=== PATIENT | female | born 1940 | race Hispanic/Latino ===

== ENCOUNTER 2017-12-31 22:23 | Inpatient (IN) | payer MEDICARE ==
[2017-12-31 23:03] LABS: #Lymphocytes 1.9 thou/uL (1.20-3.40); #Monocytes 0.5 thou/uL (0.11-0.59); #Neutrophils 4.7 thou/uL (1.40-6.50); %Basophils 0.6 % (0.0-1.0); %Eosinophils 0.5 % (0.0-10.0); %Lymphocytes 26.3 % (21.0-51.0); %Monocytes 7.2 % (0.0-10.0); %Neutrophils 65.4 % (42.0-75.0); Hemoglobin 13.4 g/dL (12.0-16.0); Mean Corpuscular HGB CONC 35.1 g/dL (32.0-36.0); Mean Corpuscular Hemoglobin 32.7 pg (27.0-31.0); Mean Corpuscular Volume 93.3 fl (81.0-99.0); Mean Platelet Volume 6.7 fL (7.4-10.4); Platelet Count 211 thou/uL (130-400); RBC Distribution Width 11.4 % (11.5-14.5); Red Blood Cell (RBC) Count 4.08 mill/uL (4.20-5.40); White Blood Cell (WBC) Count 7.1 thou/uL (4.8-10.8)
[2017-12-31 23:25] LABS: ALT (SGPT) 13 U/L (8-55); AST (SGOT) 21 U/L (5-34); Albumin 3.9 g/dL (3.4-4.8); Alkaline Phosphatase 56 U/L (40-150); Anion Gap 9 mmol/L (10-20); BUN (Urea Nitrogen) 9 mg/dL (9.8-20.1); Bilirubin, Total 0.7 mg/dL (0.2-1.2); Calc. Creatinine Clearance 0 mL/min (70-130); Carbon Dioxide 28 mmol/L (23-31); Chloride 104 mmol/L (98-107); Estimated GFR-MDRD 67; Globulin 2.8 g/dL (2.4-3.5); Glucose 100 mg/dL (83-110); Potassium 3.2 mmol/L (3.5-5.1); Protein, Total 6.7 g/dL (6.0-8.3); Sodium 138 mmol/L (136-145)
--- NOTE | 2017-12-31 23:25 | RAD ---
PORTABLE CHEST: HISTORY: Weakness. Feels dehydrated. FINDINGS: Heart size appears slightly enlarged. There are atherosclerotic changes of the aorta. The lungs are clear of infiltrates. No signs of failure. The bones appear demineralized. IMPRESSION: Borderline to minimal cardiomegaly. POS: [facility]
[2017-12-31 23:35] LABS: CKMB 1.6 ng/mL (0-6.6); Troponin I 0.022 ng/mL (< 0.028)
--- NOTE | 2017-12-31 23:58 | CT ---
CT BRAIN PERFORMED WITHOUT CONTRAST ENHANCEMENT: HISTORY: Altered mental status. FINDINGS: The ventricular and cisternal system show fairly age appropriate change. There are no signs of intra cerebral hemorrhage or extraaxial fluid collections. The mastoid air cells are clear. There is ethm oid air cell mucosal change. IMPRESSION: No acute intracranial abnormalities. POS: [facility]
[2018-01-01 00:54] LABS: Bilirubin Negative (Negative); Blood, Urine Negative (Negative); Clarity CLEAR (Clear); Glucose, Urine (Dipstick) Negative (Negative); Leukocyte Negative (Negative); Nitrite Negative (Negative); Protein, Urine (Dipstick) Negative (Neg-Trace); Specific Gravity, Urine 1.004 (1.002-1.036); Urobilinogen 0.2 mg/dL (0.2-1.0); pH, Urine 7.5 (5.0-9.0)
[2018-01-01] MEDS ORDERED: Metoprolol Tartrate 25 MG TAB ONE (01:32)
[2018-01-01 04:24] VITALS: BMI 25.8
[2018-01-01] MEDS ORDERED: Ondansetron HCl/PF 4 MG/2 ML Vial IVP PRN (05:15)
[2018-01-01] MEDS ORDERED: Acetaminophen 325 MG TAB PO PRN (05:15)
[2018-01-01] MEDS ORDERED: Ondansetron ODT 4 MG TAB PO PRN (05:15)
[2018-01-01] MEDS ORDERED: Senokot 8.6 MG TAB PO PRN (05:15)
[2018-01-01] MEDS ORDERED: Loratadine 10 MG TAB PO PRN (05:21)
[2018-01-01] MEDS ORDERED: hydrALAZINE 20 MG/ML VIAL SLOW IVP PRN (05:21)
--- NOTE | 2018-01-01 05:38 | HP ---
CHIEF COMPLAINT: Right lower extremity weakness. PRIMARY CARE PHYSICIAN: Patient is from out of town. Patient lives in [place], [place]. She is florencia elkins visiting her daughter in [place]. HISTORY OF PRESENT ILLNESS: The patient is a 77-year-old female with hypertension, hyperlipidemia, a nd coronary artery disease, who presented to the emergency room with above complaints. The patient i s somewhat poor historian. No family at the bedside. Over the last five days, the patient has been feeling generally weak with right lower extremity weakness. She has not been eating and drinking wel l. She was unable to get out of her bed earlier today. She almost fell on the floor without signifi cant injuries. Patient is not sure whether she had some diarrhea 5 days ago. She remembers her daug hter telling her that she had diarrhea. Again, the patient is a poor historian and not much informat ion available from the patient. In the emergency room, her initial vital signs showed temperature 99.6, respiration 18, pulse rate of 73 with blood pressure 208/81 with O2 saturation 95% on room air. Her EKGs showed normal sinus rhyt hm with left ventricular hypertrophy. Her troponins were negative. Urinalysis was negative. Chest x-ray was negative for infiltrate. CT scan of the brain was negative for acute CVA. She received 25 mg metoprolol in the emergency room. Her NIH score in the emergency room was 1. PAST MEDICAL HISTORY: 1. Hypertension 2. Hyperlipidemia. 3. Coronary artery disease, status post angioplasty. PAST SURGICAL HISTORY: 1. Coronary angioplasty in . 2. Cholecystectomy. 3. Breast lump removal. 4. Hysterectomy. ALLERGIES: No known drug allergies. CURRENT HOME MEDICATIONS: Aspirin 325 mg daily, Toprol-XL 12.5 mg daily, multivitamin 1 tablet daily , fish oil daily, simvastatin 20 mg at bedtime, valsartan 160 mg daily, vitamin C daily. SOCIAL HISTORY: Patient currently lives at home. No smoking, alcohol, or drug use. She is FULL COD E. Her daughter, Wendy, is her surrogate decision maker. FAMILY HISTORY: Negative for premature coronary artery disease. REVIEW OF SYSTEMS: Somewhat limited due to current cognitive status. She denies any chest pain, justin rtness of breath, or palpitations. PHYSICAL EXAMINATION: VITAL SIGNS: As discussed above. GENERAL: A 77-year-old female in no apparent distress. HEENT: Head atraumatic, normocephalic. Sclerae are anicteric. Moist mucous membranes. No oral les ion. Pupils were 2 mm with sluggish response to light. NECK: Supple, no JVD, no carotid bruit. LUNGS: Clear to auscultation bilaterally. No wheezing, rales, or rhonchi. HEART: S1, S2 present. Regular rate and rhythm, 2/6 systolic murmur over the mitral area. ABDOMEN: Soft, nontender, bowel sounds present. EXTREMITIES: No edema or calf tenderness. NEUROLOGIC: Cranial nerves II through XII were normal on examination. Power was 5/5 in all extremit ies except for some weakness in the right lower extremity. Sensation to touch was normal. Reflexes were equivocal. There was no clonus. PSYCHIATRY: As discussed above. SKIN: Warm and dry. LYMPH NODES: No palpable lymph nodes in the neck. PERIPHERAL VASCULAR: Radial pulses palpable bilaterally. MUSCULOSKELETAL: No joint swelling or tenderness. LABORATORY AND X-RAY FINDINGS: 1. CBC showed WBC 7.1 with hemoglobin 13.4, hematocrit 38.1, platelet 211,000. 2. Potassium 3.2 with sodium 138. Magnesium was normal. Cardiac enzymes were negative. Lactic aci d normal. Urinalysis was negative. 3. Chest x-ray and EKG by my review as discussed above. IMPRESSION AND PLAN: 1. New onset ataxia, rule out acute cerebrovascular accident. We will continue aspirin. We will ge t stroke workup. Neurology consult. We will add low dose statins. 2. Hypertensive urgency. We will continue her home medications that include valsartan and Toprol-XL . 3. Hyperlipidemia. We will continue simvastatin. 4. Coronary artery disease. We will continue aspirin, beta blockers, and ARB with statins. 5. Chronic kidney disease, stage 2. 6. Hypokalemia. We will replace potassium. Plan of care was discussed with the patient. She stated understanding. We will discuss the plan of care with the daughter when she arrives.
[2018-01-01 06:03] LABS: Troponin I 0.021 ng/mL (< 0.028)
[2018-01-01 06:14] LABS: Cardiac Risk 2.3 (Less than 4.5)
[2018-01-01 06:45] LABS: Folate (Folic Acid) 15.2 ng/mL (7.0-31.4)
[2018-01-01] MEDS ORDERED: Lorazepam 2 MG/ML VIAL SLOW IVP PRN (08:47)
[2018-01-01] MEDS: Potassium Chloride 20 MEQ TAB PO SCH ×2 (10:18→16:24)
[2018-01-01] MEDS: Docusate 100 MG CAP PO SCH ×2 (10:19→20:47)
[2018-01-01] MEDS: Aspirin 325 mg Enteric Coated Tablet PO SCH (10:19)
[2018-01-01] MEDS: Famotidine 20 MG TAB PO SCH ×2 (10:19→20:47)
[2018-01-01] MEDS: Valsartan 80 MG TAB PO SCH (10:20)
--- NOTE | 2018-01-01 12:48 | MRI ---
MRI BRAIN WITHOUT IV CONTRAST: DATE: 01/01/18. HISTORY: Altered mental status. Stroke. FINDINGS: There is motion artifact on several pulse sequences which were repeated. This exam is diagnostic. A few scattered punctate areas of increased FLAIR and T2 weighted signal intensity are seen in the pe riventricular and subcortical white matter which are nonspecific but likely reflective of mild chroni c small-vessel ischemic changes. There is no evidence of an acute infarction. The septum pellucidum and third ventricle are in the midline. There is mild cerebral and cerebellar volume loss. The ventricular system is normal in size, shape, and position for the degree of sulcal atrophy. Appropriate flow voids are demonstrated at the base of the brain. There is mild mucosal thickening seen in the ethmoidal air cells bilaterally and to a lesser extend i nvolving the left maxillary antrum. The orbits and remainder of the skull base have a normal MRI appearance. IMPRESSION: No acute intracranial abnormality is demonstrated. POS: [facility]
--- NOTE | 2018-01-01 15:39 | PDOC.PN ---
- Subjective Encounter Start Date: 01/01/18 Encounter Start Time: 15:37 Ms. Armstrong was seen today in follow-up of right sided weakness. she says she is moderately better, but not completely. She still has some residual weakness on the right side, and her daughter notes a continued droop on the right face. - Objective Resuscitation Status: Resuscitation Status FULL:Full Resuscitation MAR Reviewed: Yes Vital Signs & Weight: Vital Signs (12 hours) Temp Pulse Pulse Pulse Pulse Resp BP 01/01/18 15:31 99.5 F 65 18 01/01/18 12:26 68 73 67 194/60 H 01/01/18 11:35 98.4 F 62 16 01/01/18 09:52 65 72 150/50 H 01/01/18 08:00 98.7 F 68 18 01/01/18 07:58 98.7 F 68 18 01/01/18 04:24 98.6 F 71 24 H 01/01/18 04:10 99.1 F 65 20 BP BP BP Pulse Ox 01/01/18 15:31 194/60 H 95 01/01/18 12:26 205/66 H 185/62 H 01/01/18 11:35 174/60 H 95 01/01/18 09:52 151/65 H 01/01/18 08:00 01/01/18 07:58 167/59 H 94 L 01/01/18 04:24 01/01/18 04:10 143/68 H 95 Weight Weight 136 lb 11.2 oz I&O: 12/31/17 01/01/18 01/02/18 06:59 06:59 06:59 Intake Total 510 Balance 510 Result Diagrams: 12/31/17 22:54 12/31/17 22:54 Phys Exam - Physical Examination HEENT: PERRLA, sclera anicteric no bruits Respiratory: no wheezing, no rales, no rhonchi, clear to auscultation bilateral Cardiovascular: RRR, no significant murmur, no rub Gastrointestinal: soft, non-tender, no distention, positive bowel sounds Musculoskeletal: no edema Dx/Plan (1) Hypertensive crisis Code(s): I16.9 - HYPERTENSIVE CRISIS, UNSPECIFIED Status: Acute (2) Right sided weakness Code(s): R53.1 - WEAKNESS Status: Acute (3) Coronary artery disease Code(s): I25.10 - ATHSCL HEART DISEASE OF [place] CORONARY ARTERY W/O ANG PCTRS Status: Chronic (4) Dyslipidemia Code(s): E78.5 - HYPERLIPIDEMIA, UNSPECIFIED Status: Chronic - Plan * Right sided weakness- ? TIA, however the MRI was negative for CVA- she may have these symptoms as a result of the uncontrolled blood pressure. Therefore hypertensive crisis/urgency * Will add Amlodipine * Continue PT/OT * Will check carotid dopplers, and await Echo results * Continue aspirin and Atorvastatin.
[2018-01-01] MEDS ORDERED: Amlodipine 5 MG TAB PO SCH (18:00)
--- NOTE | 2018-01-01 20:10 | ULT ---
BILATERAL CAROTID DUPLEX ULTRASOUND 01/01/18 HISTORY: Right sided weakness. Real time color doppler evaluation of the right and left carotid system was performed. On the right side, peak systolic velocity of the common carotid were 95 cm/s with internal carotid ve locities of 84 cm/s and external carotid velocities of 141 cm. On the left side, peak systolic velocity of the common carotid were 90 cm/s. Internal carotid veloci ties of 86 cm/s and external carotid velocities of 108 cm. Vertebral flow is antegrade bilaterally. There is some fairly minimal. Calcified plaque formation. IMPRESSION: No evidence of hemodynamically significant stenosis of either internal carotid artery. POS: [facility]
--- NOTE | 2018-01-01 20:47 | CON ---
DATE OF CONSULTATION: 01/01/2018 CONSULTING PHYSICIAN: Hospitalist Service. IMPRESSION: Probable Parkinson's disease. PLAN: 1. Sinemet 25/100 p.o. b.i.d. 2. Office follow up. Ms. Armstrong is a 77-year-old woman, who came in because she fell when trying to get out of bed. Samantha clark reportedly has been shuffling her feet for several months according to her daughter. She usually d oes not have a festinating gait, though. She tends to lean forward in a stooped posture. She is not reporting any difficulty using her hands. She denies any drooling or constipation. She is not havi ng hallucinations. She was admitted after not being able to get up. CT of the brain and MRI of the brain were both normal. All her lab work was unremarkable. Her vital signs have been stable and she is afebrile. PAST MEDICAL HISTORY: Otherwise, negative. FAMILY HISTORY: Unremarkable. SOCIAL HISTORY: No tobacco or alcohol. ALLERGIES: As per chart. REVIEW OF SYSTEMS: No complaints of headache, nausea, vomiting, or vertigo. PHYSICAL EXAMINATION: GENERAL: She is a well-nourished elderly lady sitting in bed in no distress. HEENT: Notable for masked facies, blink frequency was reduced. No drooling was noted. NECK: Supple. EXTREMITIES: No cyanosis, clubbing or edema. NEUROLOGIC: She is alert and cooperative. Her voice is somewhat low volume and somewhat monotone as well. Cranial nerves were intact. Motor exam shows good strength bilaterally. There is some incre ased tone in the right arm with cogwheel rigidity. Rapid alternating movements are reduced in the ri ght hand as compared to the left. Gait is somewhat stooped and shuffling in appearance. No tremor w as noted. EKG normal sinus rhythm. SUMMARY: A 77-year-old woman with several features of Parkinsonism, can start her on treatment and f ollow up with her in the office.
[2018-01-01] MEDS ORDERED: Enoxaparin Sodium 40 MG/0.4 ML SYRINGE SC SCH (21:00)
[2018-01-01] MEDS ORDERED: Atorvastatin Calcium 10 MG TAB PO SCH (21:00)
[2018-01-02 05:33] LABS: #Eosinphils 0.1 thou/uL (0.0-0.7); #Lymphocytes 1.8 thou/uL (1.20-3.40); #Monocytes 0.5 thou/uL (0.11-0.59); #Neutrophils 4.1 thou/uL (1.40-6.50); %Basophils 0.6 % (0.0-1.0); %Eosinophils 2.1 % (0.0-10.0); %Lymphocytes 27.8 % (21.0-51.0); %Monocytes 7.4 % (0.0-10.0); %Neutrophils 62.2 % (42.0-75.0); Hemoglobin 14.3 g/dL (12.0-16.0); Mean Corpuscular HGB CONC 34.8 g/dL (32.0-36.0); Mean Corpuscular Volume 94.9 fl (81.0-99.0); Mean Platelet Volume 6.8 fL (7.4-10.4); Platelet Count 215 thou/uL (130-400); RBC Distribution Width 11.7 % (11.5-14.5); Red Blood Cell (RBC) Count 4.33 mill/uL (4.20-5.40); White Blood Cell (WBC) Count 6.6 thou/uL (4.8-10.8)
[2018-01-02 05:42] LABS: Anion Gap 15 mmol/L (10-20); BUN (Urea Nitrogen) 11 mg/dL (9.8-20.1); Calc. Creatinine Clearance 55 mL/min (70-130); Calcium 8.9 mg/dL (7.8-10.44); Carbon Dioxide 25 mmol/L (23-31); Chloride 103 mmol/L (98-107); Estimated GFR-MDRD 66; Glucose 110 mg/dL (83-110); Potassium 3.8 mmol/L (3.5-5.1); Sodium 139 mmol/L (136-145)
[2018-01-02] MEDS: Valsartan 80 MG TAB PO SCH (08:41)
[2018-01-02] MEDS: Aspirin 325 mg Enteric Coated Tablet PO SCH (08:45)
[2018-01-02] MEDS: Docusate 100 MG CAP PO SCH (08:45)
--- NOTE | 2018-01-02 08:53 | PDOC.PN ---
- Subjective Encounter Start Date: 01/02/18 Encounter Start Time: 08:51 Subjective: mild tremor, shuffling walk - Objective MAR Reviewed: Yes Vital Signs & Weight: Vital Signs (12 hours) Temp Pulse Resp BP BP Pulse Ox 01/02/18 08:43 74 153/59 H 01/02/18 07:35 98.2 F 74 16 153/59 H 93 L 01/02/18 03:59 98.7 F 76 18 146/60 H 95 01/01/18 23:18 98.2 F 75 16 150/60 H 96 Weight Weight 134 lb 1.6 oz I&O: 01/01/18 01/02/18 01/03/18 06:59 06:59 06:59 Intake Total 640 Balance 640 Result Diagrams: 01/02/18 05:12 01/02/18 05:12 Phys Exam - Physical Examination Neck: no JVD Respiratory: clear to auscultation bilateral Cardiovascular: RRR, no significant murmur Gastrointestinal: soft, non-tender Musculoskeletal: no edema mild tremor, cogwheeling on ext/flexion at elbow Dx/Plan (1) Parkinson disease Code(s): G20 - PARKINSON'S DISEASE Status: Acute (2) Hypertensive crisis Code(s): I16.9 - HYPERTENSIVE CRISIS, UNSPECIFIED Status: Acute (3) Coronary artery disease Code(s): I25.10 - ATHSCL HEART DISEASE OF [place] CORONARY ARTERY W/O ANG PCTRS Status: Chronic Qualifiers: Coronary Disease-Associated Artery/Lesion type: [place] artery [place] vs. transplanted heart: [place] heart Associated angina: without angina Qualified Code(s): I25.10 - Atherosclerotic heart disease of [place] coronary artery without angina pectoris (4) Dyslipidemia Code(s): E78.5 - HYPERLIPIDEMIA, UNSPECIFIED Status: Chronic - Plan cont asa, statins -: start sinemet tid -: control BP -: rehab? * .
[2018-01-02] MEDS ORDERED: Non-Formulary Item 1 EACH (Ascorbic Acid [Vitamin C] 1,000 MG) PO SCH (09:00)
[2018-01-02] MEDS ORDERED: Amlodipine 5 MG TAB PO SCH (09:00)
[2018-01-02] MEDS ORDERED: Aspirin 325 MG TAB PO SCH (09:00)
[2018-01-02] MEDS ORDERED: Ascorbic Acid 500 mg Chewable Tablet PO SCH (09:15)
[2018-01-02] MEDS: Carbidopa/Levodopa 25-100 mg Tablet PO SCH ×2 (09:59→14:01)
--- NOTE | 2018-01-02 15:44 | DIS ---
PRIMARY CARE PHYSICIAN: Out of town. The patient is being transferred to [facility]. FINAL DIAGNOSES: Acute onset Parkinson's disease, hypertensive crisis, coronary artery disease, dysl ipidemia. DISCHARGE MEDICATIONS: Valsartan 160 mg a day, metoprolol 12.5 mg a day, aspirin 325 mg a day, Delphine et 25/100 one tablet 3 times a day, Lipitor 10 mg a day, amlodipine 5 mg a day, acetaminophen 650 mg p.o. q.4 hours p.r.n. ALLERGIES: None. PENDING AT THE TIME OF DISCHARGE: Nothing. CODE STATUS: FULL. HOSPITAL COURSE: Patient placed in the hospital with complaints of right lower extremity weakness. Stroke workup was initiated. Home medicines were continued. Dr. Sundar Flowers was consulted. Jamarcus clark a clinical diagnosis of Parkinson's, suggested starting on medications. Carotid Doppler was done, no stenosis in either ICA. MRI of the brain was done. No acute intracranial abnormality. There was some evidence of mild chronic small vessel change. Certainly no evidence of acute infarction. Shruthi ent was seeing PT/OT. Echocardiogram revealed an EF of 50%-55% with some moderate aortic regurg. PERTINENT LABORATORY DATA: CBC normal x2. Comp metabolic profile normal except for a potassium of 3 .2 that improved with therapy. Cholesterol 138, LDL 61, HDL 59. Vitamin B12 266. Folate 15. Patient has been started on 25/100 Sinemet, home medicines continued. She is being transferred to [facility] for further PT/OT monitoring of her Sinemet for efficacy and side effects. Post-discharge, if she remains here, she will need a PCP. Otherwise, she will return to her PCP in [place], [place].
[2018-01-02 19:57] VITALS: BP 142/69; TEMP 97.9
[2018-01-02] MEDS ORDERED: EPA PO SCH ×2 (21:00)
[2018-01-02] MEDS ORDERED: OMEGA PO SCH ×2 (21:00)
[2018-01-02] MEDS ORDERED: Famotidine 20 MG TAB PO SCH (21:00)
[2018-01-02] MEDS ORDERED: FISH OIL PO SCH ×2 (21:00)
[2018-01-02] MEDS ORDERED: DHA PO SCH ×2 (21:00)
[2018-01-02] MEDS ORDERED: Fish Oil 1,000 MG CAP PO SCH (21:00)
[2018-01-03] MEDS ORDERED: Ascorbic Acid 500 mg Chewable Tablet PO SCH (09:00)
== END 2018-01-02 20:00 | DRG 57 ==
LOC: ERS 22:23 → 2SE 01-01 01:10 → OBSVTOIN 01-01 15:36
PROVIDERS: ADMIT Internal Medicine; ATTEND Internal Medicine
DX: G20 Parkinson's disease (principal); E78.5 Hyperlipidemia, unspecified; I25.10 Atherosclerotic heart disease of native coronary artery without angina pectoris; I12.9 Hypertensive chronic kidney disease with stage 1 through stage 4 chronic kidney disease, or unspecified chronic kidney disease; N18.2 Chronic kidney disease, stage 2 (mild); E87.6 Hypokalemia
CPT/HCPCS: 36415; 51701; 70450; 70551; 71045; 80048; 80053; 80061; 81003; 82553; 82607; 82746; 83605; 83735; 84484; 85025; 93005; 93306; 93880; 94760; A4353; G8978-GP-CK; G8979-GP-CI; G8987-GO-CL; G8988-GO-CJ; G8996-GN-CI; G8997-GN-CI; J0360; J1650; J2060

== ENCOUNTER 2020-07-13 08:11 | Observation (INO) | payer MEDICARE ==
[2020-07-13 09:53] LABS: #Eosinphils 0.1 thou/uL (0.0-0.7); #Lymphocytes 1.5 thou/uL (1.20-3.40); #Monocytes 0.4 thou/uL (0.11-0.59); #Neutrophils 4.9 thou/uL (1.40-6.50); %Basophils 0.6 % (0.0-1.0); %Eosinophils 0.8 % (0.0-10.0); %Lymphocytes 21.7 % (21.0-51.0); %Monocytes 5.7 % (0.0-10.0); %Neutrophils 71.2 % (42.0-75.0); Hemoglobin 14.6 g/dL (12.0-16.0); Mean Corpuscular HGB CONC 32.8 g/dL (32.0-36.0); Mean Corpuscular Hemoglobin 30.7 pg (27.0-31.0); Mean Corpuscular Volume 93.4 fL (78.0-98.0); Mean Platelet Volume 7.4 fL (7.4-10.4); Platelet Count 256 thou/uL (130-400); Red Blood Cell (RBC) Count 4.76 mill/uL (4.20-5.40); White Blood Cell (WBC) Count 6.8 thou/uL (4.8-10.8)
[2020-07-13 10:19] LABS: ALT (SGPT) Less than 7 U/L (8-55); AST (SGOT) 13 U/L (5-34); Albumin 4.3 g/dL (3.4-4.8); Alkaline Phosphatase 77 U/L (40-110); Anion Gap 14 mmol/L (10-20); BUN (Urea Nitrogen) 9 mg/dL (9.8-20.1); CK (CPK) 150 U/L (29-168); Calc. Creatinine Clearance 0 mL/min (70-130); Calcium 9.3 mg/dL (7.8-10.44); Carbon Dioxide 31 mmol/L (23-31); Chloride 98 mmol/L (98-107); Estimated GFR-MDRD 59; Globulin 3.4 g/dL (2.4-3.5); Glucose 128 mg/dL (83-110); Lipase 25 U/L (8-78); Magnesium 1.8 mg/dL (1.6-2.6); Protein, Total 7.7 g/dL (6.0-8.3); Sodium 140 mmol/L (136-145)
--- NOTE | 2020-07-13 10:19 | RAD ---
Chest one view HISTORY: Decreased appetite. Weakness. COMPARISON: 12/31/2017. FINDINGS: Cardiac silhouette is magnified by projection. Mediastinum is slightly shifted leftward wit h patient rotation. Calcification is apparent within the aorta. No lobar consolidation or evidence of pneumothorax. Degenerative changes of the left shoulder partial ly visualized. IMPRESSION : No active cardiopulmonary abnormalities are demonstrated. Atherosclerosis.
[2020-07-13 10:25] LABS: Potassium 2.5 mmol/L (3.5-5.1)
[2020-07-13] MEDS ORDERED: Potassium Chloride 20 MEQ TAB ONE ×2 (11:09)
[2020-07-13] MEDS ORDERED: Acetaminophen 325 MG TAB PO PRN (12:04)
[2020-07-13] MEDS ORDERED: Electrolyte Replacement Protoc 1 EACH EACH FS SCH (12:15)
[2020-07-13] MEDS ORDERED: Labetalol HCl 100 MG/20 ML VIAL SLOW IVP PRN (12:16)
[2020-07-13] MEDS ORDERED: hydrALAZINE 20 MG/ML VIAL SLOW IVP PRN (12:16)
[2020-07-13] MEDS ORDERED: Electrolyte Replacement Protocol FS PRN (12:30)
[2020-07-13] MEDS ORDERED: Potassium Chloride 40 MEQ in Sodium Chloride 0.9% 250 ML 250 ML IV SCH (12:30)
--- NOTE | 2020-07-13 13:57 | PDOC.HHP ---
Hospitalist HPI - History of Present Illness History of Present Illness: ADMISSION DATE: 07/13/2020 TIME OF ASSESSMENT: 1215 PRIMARY CARE PHYSICIAN: None currently, city call CHIEF COMPLAINT: Generalized weakness HPI: Patient is 80-year-old female past medical history significant for Parkinson's and hypertension. She presents to the ER today after having increased bilateral weakness and decreased appetite. At one point she did states she had chest pain, however she states she was referring to rib pain from a recent fall. She denies shortness of breath, abdominal pain, contact with sick persons, bowel or bladder changes. ED COURSE: Today in the ER she was found to be hypokalemic at 2.5 with no changes to her EKG. She also had a chest x-ray completed which showed no active cardiopulmonary abnormalities. She was given potassium 40 mEq IV and potassium 40 mEq p.o. PAST MEDICAL HISTORY: Hyperlipidemia, hypertension, Parkinson's PAST SURGICAL HISTORY: Angioplasty, cholecystectomy, hysterectomy SOCIAL HISTORY: Patient recently moved here from out of town to live with her daughter. She denies any alcohol, drug, tobacco use. FAMILY HISTORY: Positive for CAD ALLERGIES: No known drug allergies CURRENT MEDICATIONS: Aspirin Simvastatin Carbidopa levodopa Hydralazine [facility] Hospitalist ROS - Review of Systems Constitutional: reports: weakness, other (Decreased appetite) All other systems reviewed; all pertinent +/- noted in HPI/Subj - Medication Medications: Active Medications Generic Name Dose Route Start Last Admin Trade Name Freq PRN Reason Stop Dose Admin Potassium Chloride 40 meq/ 270 mls @ 67.5 mls/hr 07/13/20 12:30 07/13/20 13:25 Sodium Chloride IV 07/13/20 18:00 270 mls NOW IMER Administration Magnesium Sulfate 1 gm/ Sodium 102 mls @ 100 mls/hr 07/13/20 12:30 07/13/20 13:24 Chloride IVPB 07/13/20 15:00 102 mls NOW IMER Administration - Exam General Appearance: NAD, awake alert Heart: RRR, no murmur, no gallops, no rubs, normal peripheral pulses Respiratory: CTAB, no wheezes, no rales, no ronchi, normal chest expansion Gastrointestinal: soft, non-tender, non-distended, normal bowel sounds, no palpable masses Gastrointestinal - other findings: tenderness to right side rib cage with pa lpation Neurological: cranial nerve grossly intact Musculoskeletal: generalized weakness Psychiatric: normal affect, normal behavior, A&O x 3 Hospitalist Results - Labs Result Diagrams: 07/13/20 09:42 07/13/20 09:42 Lab results: WBC 6.8 thou/uL (4.8-10.8) 07/13/20 09:42 Hgb 14.6 g/dL (12.0-16.0) 07/13/20 09:42 Hct 44.5 % (36.0-47.0) 07/13/20 09:42 MCV 93.4 fL (78.0-98.0) 07/13/20 09:42 Plt Count 256 thou/uL (130-400) 07/13/20 09:42 Neutrophils % 71.2 % (42.0-75.0) 07/13/20 09:42 Sodium 140 mmol/L (136-145) 07/13/20 09:42 Potassium 2.5 mmol/L (3.5-5.1) L* 07/13/20 09:42 Chloride 98 mmol/L (98-107) 07/13/20 09:42 Carbon Dioxide 31 mmol/L (23-31) 07/13/20 09:42 BUN 9 mg/dL (9.8-20.1) L 07/13/20 09:42 Creatinine 0.92 mg/dL (0.6-1.1) 07/13/20 09:42 Glucose 128 mg/dL (83-110) H 07/13/20 09:42 Calcium 9.3 mg/dL (7.8-10.44) 07/13/20 09:42 Total Bilirubin 1.0 mg/dL (0.2-1.2) 07/13/20 09:42 AST 13 U/L (5-34) 07/13/20 09:42 ALT Less than 7 U/L (8-55) L 07/13/20 09:42 Alkaline Phosphatase 77 U/L (40-110) 07/13/20 09:42 Creatine Kinase 150 U/L (29-168) 07/13/20 09:42 Troponin I 0.020 ng/mL (< 0.028) 07/13/20 09:43 B-Natriuretic Peptide 186.3 pg/mL (0-100) H 07/13/20 09:42 Serum Total Protein 7.7 g/dL (6.0-8.3) 07/13/20 09:42 Albumin 4.3 g/dL (3.4-4.8) 07/13/20 09:42 Lipase 25 U/L (8-78) 07/13/20 09:42 - EKG Interpretation EKG: SR 62 bpm - Radiology Interpretation Chest x-ray Status: image reviewed by me, report reviewed by me Additional Comment: FINDINGS: Cardiac silhouette is magnified by projection. Mediastinum is slightly shifted leftward with patient rotation. Calcification is apparent within the aorta. No lobar consolidation or evidence of pneumothorax. Degenerative changes of the left shoulder partially visualized. IMPRESSION : No active cardiopulmonary abnormalities are demonstrated. Atherosclerosis. Hospitalist H&P A/P - Problem (1) Hyperkalemia Code(s): E87.5 - HYPERKALEMIA Status: Acute (2) Generalized weakness Code(s): R53.1 - WEAKNESS Status: Acute (3) Hypertension Code(s): I10 - ESSENTIAL (PRIMARY) HYPERTENSION Status: Chronic (4) Parkinson disease Code(s): G20 - PARKINSON'S DISEASE Status: Chronic - Plan Plan: #Hyperkalemia Electrolyte replacement protocol ordered We will recheck BMP this afternoon after administration of IV and oral potassium Monitor labs in a.m. #Hypertension Restart home medications Vital signs every 4 hour As needed antihypertensives available #Generalized weakness No infectious process noted at this time UA ordered, awaiting collection Possibly secondary to advancement of Parkinson's #Parkinson's We will need to reestablish with neurologist here in town that she has moved here Continue home medications CODE STATUS: Full Surrogate decision-maker is her daughter, Andree Macario
[2020-07-13 15:30] VITALS: BMI 24.7
[2020-07-13 15:55] LABS: Anion Gap 20 mmol/L (10-20); BUN (Urea Nitrogen) 10 mg/dL (9.8-20.1); Calc. Creatinine Clearance 49 mL/min (70-130); Calcium 9.2 mg/dL (7.8-10.44); Carbon Dioxide 28 mmol/L (23-31); Chloride 97 mmol/L (98-107); Estimated GFR-MDRD 64; Glucose 86 mg/dL (83-110); Potassium 2.6 mmol/L (3.5-5.1); Sodium 142 mmol/L (136-145)
[2020-07-13 16:21] LABS: Bacteria/HPF 4+ HPF (None Seen); Bilirubin Negative (Negative); Blood, Urine Negative (Negative); Clarity Turbid (Clear); Glucose, Urine (Dipstick) Normal (Negative); Ketone, Urine Negative (Negative); Leukocyte 500 Leu/uL (Negative); Nitrite 2+ (Negative); Protein, Urine (Dipstick) Negative (Neg-Trace); Specific Gravity, Urine 1.014 (1.002-1.036); Urobilinogen Normal mg/dL (Less than 2); WBC/HPF Greater than 50 HPF (0-3); pH, Urine 5.5 (5.0-9.0)
[2020-07-13] MEDS: cefTRIAXone\\ROCEPHIN 1 GM in Sodium Chloride 0.9% 100 ML IVPB SCH (18:17)
[2020-07-13] MEDS: Carbidopa/Levodopa 25-100 mg Tablet PO SCH ×2 (18:17→20:57)
[2020-07-13] MEDS: Fish Oil 1,000 MG CAP PO SCH (20:57)
[2020-07-13] MEDS: hydrALAZINE 25 MG TAB PO SCH (20:58)
[2020-07-13] MEDS: Atorvastatin Calcium 10 MG TAB PO SCH (20:58)
[2020-07-14] MEDS ORDERED: Melatonin 3 MG TAB PO PRN (01:52)
[2020-07-14] MEDS: Potassium Chloride 20 MEQ in Premix Bag 1 BAG IVPB SCH ×2 (02:57→05:03)
[2020-07-14] MEDS ORDERED: Potassium Chloride 20 MEQ TAB PO SCH (04:30)
[2020-07-14 06:43] LABS: #Basophils 0.1 thou/uL (0.0-0.2); #Lymphocytes 0.8 thou/uL (1.20-3.40); #Monocytes 0.2 thou/uL (0.11-0.59); #Neutrophils 6.1 thou/uL (1.40-6.50); %Basophils 1.2 % (0.0-1.0); %Eosinophils 0.4 % (0.0-10.0); %Lymphocytes 10.7 % (21.0-51.0); %Monocytes 2.7 % (0.0-10.0); Hemoglobin 13.4 g/dL (12.0-16.0); Mean Corpuscular HGB CONC 33.9 g/dL (32.0-36.0); Mean Corpuscular Hemoglobin 31.5 pg (27.0-31.0); Mean Corpuscular Volume 92.9 fL (78.0-98.0); Mean Platelet Volume 7.4 fL (7.4-10.4); Platelet Count 225 thou/uL (130-400); RBC Distribution Width 12.2 % (11.5-14.5); Red Blood Cell (RBC) Count 4.24 mill/uL (4.20-5.40); White Blood Cell (WBC) Count 7.2 thou/uL (4.8-10.8)
[2020-07-14 07:04] LABS: Anion Gap 13 mmol/L (10-20); BUN (Urea Nitrogen) 8 mg/dL (9.8-20.1); Calc. Creatinine Clearance 57 mL/min (70-130); Calcium 8.4 mg/dL (7.8-10.44); Carbon Dioxide 23 mmol/L (23-31); Chloride 104 mmol/L (98-107); Estimated GFR-MDRD 78; Glucose 118 mg/dL (83-110); Magnesium 1.8 mg/dL (1.6-2.6); Potassium 3.6 mmol/L (3.5-5.1); Sodium 136 mmol/L (136-145)
[2020-07-14] MEDS ORDERED: Magnesium 2 GM/50 ML 2 GM in Premix Bag 1 BAG IVPB SCH (07:30)
[2020-07-14] MEDS: hydrALAZINE 25 MG TAB PO SCH ×2 (08:12→20:38)
[2020-07-14] MEDS: Carbidopa/Levodopa 25-100 mg Tablet PO SCH ×4 (08:14→20:38)
[2020-07-14] MEDS ORDERED: Nebivolol HCl 5 MG TAB PO SCH (09:00)
[2020-07-14] MEDS ORDERED: FLU VACC QS2020-21(65YR UP)/PF 240 MCG/0.7 ML SYRINGE IM ONE (09:00)
[2020-07-14] MEDS ORDERED: Multivitamin W/ Minerals 1 TAB PO SCH (09:00)
[2020-07-14] MEDS ORDERED: Ascorbic Acid 500 mg Chewable Tablet PO SCH (09:00)
[2020-07-14] MEDS ORDERED: Aspirin 325 MG TAB PO SCH (09:00)
[2020-07-14] MEDS: cefTRIAXone\\ROCEPHIN 1 GM in Sodium Chloride 0.9% 100 ML IVPB SCH (17:29)
[2020-07-14] MEDS: Fish Oil 1,000 MG CAP PO SCH (20:38)
[2020-07-14] MEDS: Atorvastatin Calcium 10 MG TAB PO SCH (20:38)
[2020-07-14 21:48] VITALS: BP 175/69; TEMP 98.6
--- NOTE | 2020-07-15 03:46 | DIS ---
DATE OF ADMISSION: 07/13/2020 DATE OF DISCHARGE: 07/14/2020 DISCHARGE DIAGNOSES: 1. Hypokalemia, resolved. 2. Generalized weakness secondary to #1, improved. 3. Hypertension. 4. Parkinson disease. 5. Dehydration, resolving. CONSULTATIONS: None. PERTINENT LABORATORY AND X-RAY FINDINGS: Potassium ranged between 2.5 to 3.6. Creatinine ranged between 0.72 to 0.92. Magnesium level 1.8. LFTs within normal limits. BNP 186, lipase 25. CBC within normal limits. Urine culture dated 07/13/2020, showed possible mixed culture. Portable chest x-ray dated 07/13/2020, showed no acute cardiopulmonary process. HOSPITAL COURSE: The patient was initially admitted after presenting with generalized weakness with metabolic screening showing hypokalemia with initial potassium level of 2.5. The patient received potassium chloride supplementation in addition to IV fluids and overall remained clinically stable. The patient's potassium level did normalize by the time of discharge and overall patient did symptomatically improve in regard to generalized weakness. The patient was resumed on her regular outpatient medication regimen including her anti Parkinson's therapy without complication. I have examined the patient at the time of discharge and discussed followup instructions. The patient verbalizes understanding and in agreement, ready for discharge on 07/14/2020. DISCHARGE MEDICATIONS: 1. Enteric-coated aspirin 325 mg p.o. daily. 2. Bystolic 20 mg p.o. daily. 3. [place]-3 fatty acids one tablet p.o. at bedtime. 4. Hydralazine 50 mg p.o. b.i.d. 5. Multivitamin 1 tablet p.o. daily. 6. Sinemet 25/100 mg one tablet p.o. q.i.d. 7. Toprol-XL 12.5 mg p.o. daily. 8. Valsartan 240 mg p.o. daily. 9. Vitamin C 1000 mg p.o. daily. 10. Lipitor 10 mg p.o. at bedtime. FOLLOWUP: The patient is to follow up with her primary care provider of choice and to establish with local primary care clinic. CONDITION ON DISCHARGE: Stable. ACTIVITY: Ad-rupert. DIET: Heart healthy. CODE STATUS: Full. DISPOSITION: To home on 07/14/2020. Job ID: [id number]
[2020-07-15] MEDS ORDERED: Valsartan 80 MG TAB PO SCH (09:00)
--- NOTE | 2020-07-17 17:08 | EKG ---
Test Reason : Blood Pressure : / mmHG Vent. Rate : 062 BPM Atrial Rate : 062 BPM P-R Int : 178 ms QRS Dur : 084 ms QT Int : 438 ms P-R-T Axes : 085 -37 -30 degrees QTc Int : 444 ms Normal sinus rhythm Left axis deviation Left ventricular hypertrophy with repolarization abnormality Abnormal ECG Confirmed by JUICE CASTELLANO DO ([id number]), photographic editor CHANO RAMOS ([id number]) on 07/17/2020 5:07:47 PM Referred By: Confirmed By:JUICE CASTELLANO DO
== END 2020-07-14 21:35 | disposition home or self-care (01) ==
LOC: ERS 08:11 → ERHOLD 11:44 → T4-B 15:27
PROVIDERS: ADMIT Internal Medicine; ATTEND Family Medicine
DX: E87.6 Hypokalemia (principal); R53.1 Weakness; I10 Essential (primary) hypertension; G20 Parkinson's disease; E86.0 Dehydration; E78.5 Hyperlipidemia, unspecified; R63.0 Anorexia; Z68.24 Body mass index [BMI] 24.0-24.9, adult; Z79.82 Long term (current) use of aspirin; Z79.899 Other long term (current) drug therapy
CPT/HCPCS: 71045; 80048 ×2; 80053; 81001; 82550; 83690; 83735 ×2; 83880; 84484; 85025 ×2; 87077; 87086; 93005; 96365; 96366; 96374; 96375 ×2; 96376; 99285; G0378 ×3; 36415; 51798; 87186; J0360; J0696; J3475; J3480; J3490; J7050

== ENCOUNTER 2020-09-19 18:40 | Inpatient (IN) | payer MEDICARE ==
[~2020-09-19 18:40] MED LIST: Iopamidol-370 76% 500 ML 1 ML ONE
[2020-09-19 19:31] LABS: #Lymphocytes 1.2 thou/uL (1.20-3.40); #Monocytes 0.3 thou/uL (0.11-0.59); #Neutrophils 5.7 thou/uL (1.40-6.50); %Basophils 0.3 % (0.0-1.0); %Eosinophils 0.3 % (0.0-10.0); %Lymphocytes 16.5 % (21.0-51.0); %Monocytes 4.6 % (0.0-10.0); %Neutrophils 78.4 % (42.0-75.0); Hemoglobin 12.9 g/dL (12.0-16.0); Mean Corpuscular HGB CONC 33.6 g/dL (32.0-36.0); Mean Corpuscular Hemoglobin 31.1 pg (27.0-31.0); Mean Corpuscular Volume 92.6 fL (78.0-98.0); Mean Platelet Volume 7.3 fL (7.4-10.4); Platelet Count 243 thou/uL (130-400); RBC Distribution Width 12.6 % (11.5-14.5); Red Blood Cell (RBC) Count 4.14 mill/uL (4.20-5.40); White Blood Cell (WBC) Count 7.3 thou/uL (4.8-10.8)
[2020-09-19 19:56] LABS: ALT (SGPT) Less than 7 U/L (8-55); AST (SGOT) 8 U/L (5-34); Albumin 3.7 g/dL (3.4-4.8); Alkaline Phosphatase 68 U/L (40-110); Anion Gap 14 mmol/L (10-20); BUN (Urea Nitrogen) 14 mg/dL (9.8-20.1); Bilirubin, Total 0.5 mg/dL (0.2-1.2); Calc. Creatinine Clearance 0 mL/min (70-130); Calcium 8.5 mg/dL (7.8-10.44); Carbon Dioxide 26 mmol/L (23-31); Chloride 100 mmol/L (98-107); Globulin 2.7 g/dL (2.4-3.5); Glucose 102 mg/dL (83-110); Lipase 31 U/L (8-78); Potassium 3.1 mmol/L (3.5-5.1); Protein, Total 6.4 g/dL (5.8-8.1); Sodium 137 mmol/L (136-145)
[2020-09-19 19:57] LABS: Magnesium 1.8 mg/dL (1.6-2.6)
[2020-09-19 20:15] LABS: Bilirubin Negative (Negative); Blood, Urine Negative (Negative); Clarity Clear (Clear); Glucose, Urine (Dipstick) Normal (Negative); Ketone, Urine 10 mg/dL (Negative); Leukocyte Negative Leu/uL (Negative); Nitrite Negative (Negative); Protein, Urine (Dipstick) 50 mg/dL (Neg-Trace); RBC/HPF 0-3 HPF (0-3); Specific Gravity, Urine 1.037 (1.002-1.036); Squamous Epithelial 0-3 HPF (0-3); pH, Urine 5.5 (5.0-9.0)
[2020-09-19 20:16] LABS: Bacteria/HPF 1+ HPF (None Seen)
[2020-09-19] MEDS ORDERED: cefTRIAXone\\ROCEPHIN 1 GM VIAL ONE (21:00)
[2020-09-19] MEDS ORDERED: Acetaminophen 650 MG Suppository PR PRN (21:30)
[2020-09-19] MEDS ORDERED: Acetaminophen 325 MG TAB PO PRN (21:30)
[2020-09-19] MEDS ORDERED: Morphine 4 MG/ML VIAL ONE (22:00)
[2020-09-19] MEDS ORDERED: Ondansetron PF 4 MG/2 ML Vial ONE (22:28)
[2020-09-19 22:54] LABS: Troponin I 0.017 ng/mL (< 0.028)
[2020-09-19] MEDS ORDERED: Potassium Chloride 20 MEQ TAB PO SCH (23:00)
[2020-09-20] MEDS ORDERED: Ondansetron ODT 4 MG TAB PO PRN (00:51)
[2020-09-20] MEDS ORDERED: hydrALAZINE 20 MG/ML VIAL SLOW IVP SCH (01:00)
[2020-09-20 01:18] VITALS: BMI 23.8
[2020-09-20] MEDS ORDERED: Potassium Chloride 40 MEQ in Sodium Chloride 0.9% 250 ML 250 ML IVPB SCH (01:30)
[2020-09-20] MEDS: Ondansetron PF 4 MG/2 ML Vial IVP PRN ×2 (01:51→05:14)
[2020-09-20 01:54] LABS: Troponin I 0.017 ng/mL (< 0.028)
[2020-09-20 05:45] LABS: Hemoglobin A1c 4.9 % (4.0-6.0)
[2020-09-20 05:53] LABS: Band 8 % (5-11); Hemoglobin 13.4 g/dL (12.0-16.0); Lymphocytes 13 % (21-51); MDiff Complete? YES; Mean Corpuscular HGB CONC 35.3 g/dL (32.0-36.0); Mean Corpuscular Hemoglobin 33.1 pg (27.0-31.0); Mean Corpuscular Volume 93.8 fL (78.0-98.0); Mean Platelet Volume 7.5 fL (7.4-10.4); Monocytes 5 % (0-10); Neutrophil 74 % (42-75); Platelet Count 219 thou/uL (130-400); Platelet Morphology Comment Appears Adequate; RBC Distribution Width 13.2 % (11.5-14.5); Red Blood Cell (RBC) Count 4.06 mill/uL (4.20-5.40); White Blood Cell (WBC) Count 10.7 thou/uL (4.8-10.8)
[2020-09-20 06:09] LABS: ALT (SGPT) Less than 7 U/L (8-55); AST (SGOT) 10 U/L (5-34); Albumin 3.7 g/dL (3.4-4.8); Alkaline Phosphatase 66 U/L (40-110); Anion Gap 13 mmol/L (10-20); BUN (Urea Nitrogen) 12 mg/dL (9.8-20.1); Bilirubin, Total 0.5 mg/dL (0.2-1.2); Calc. Creatinine Clearance 60 mL/min (70-130); Calcium 8.7 mg/dL (7.8-10.44); Carbon Dioxide 24 mmol/L (23-31); Chloride 103 mmol/L (98-107); Cholesterol 129 mg/dl (< 200 Desired); Glucose 95 mg/dL (83-110); HDL Cholesterol 65 mg/dL (>60 Neg Risk); LDL Cholesterol, Calculated 50 mg/dL; Magnesium 1.8 mg/dL (1.6-2.6); Potassium 3.3 mmol/L (3.5-5.1); Protein, Total 6.7 g/dL (5.8-8.1); Sodium 137 mmol/L (136-145); Triglycerides 71 mg/dL (Less than 150)
[2020-09-20] MEDS ORDERED: Enoxaparin Sodium 40 MG/0.4 ML SYRINGE SC SCH (09:00)
[2020-09-20] MEDS ORDERED: Aspirin 325 mg Enteric Coated Tablet PO SCH (09:00)
[2020-09-20 09:17] LABS: SARS-CoV-2 PCR by NAA Not Detected (NotDetected)
[2020-09-20] MEDS: Enoxaparin Sodium 40 MG/0.4 ML SYRINGE SC SCH (10:43)
[2020-09-20] MEDS: Carbidopa/Levodopa 25-100 mg Tablet PO SCH ×4 (10:43→20:15)
[2020-09-20] MEDS: hydrALAZINE 25 MG TAB PO SCH ×2 (10:43→20:14)
[2020-09-20] MEDS: Pramipexole Di-HCl 0.25 MG TAB PO SCH ×3 (10:43→20:14)
[2020-09-20] MEDS: Aspirin 325 MG TAB PO SCH (10:43)
[2020-09-20] MEDS: Lorazepam 0.5 MG TAB PO PRN (12:25)
[2020-09-20] MEDS: Fish Oil 1,000 MG CAP PO SCH (20:14)
[2020-09-20] MEDS: Atorvastatin Calcium 10 MG TAB PO SCH (20:15)
[2020-09-20] MEDS ORDERED: Atorvastatin Calcium 40 MG TAB PO SCH (21:00)
[2020-09-21] MEDS: Enoxaparin Sodium 40 MG/0.4 ML SYRINGE SC SCH (09:25)
[2020-09-21] MEDS: Aspirin 325 MG TAB PO SCH (09:26)
[2020-09-21] MEDS: Pramipexole Di-HCl 0.25 MG TAB PO SCH ×3 (09:26→22:46)
[2020-09-21] MEDS: Amlodipine 5 MG TAB PO SCH (09:26)
[2020-09-21] MEDS: hydrALAZINE 25 MG TAB PO SCH ×2 (09:26→22:47)
[2020-09-21] MEDS: Carbidopa/Levodopa 25-100 mg Tablet PO SCH ×4 (09:26→22:46)
[2020-09-21] MEDS: Lorazepam 0.5 MG TAB PO PRN (15:41)
[2020-09-21] MEDS: Fish Oil 1,000 MG CAP PO SCH (22:45)
[2020-09-21] MEDS: Atorvastatin Calcium 10 MG TAB PO SCH (22:46)
[2020-09-22] MEDS: Enoxaparin Sodium 40 MG/0.4 ML SYRINGE SC SCH (07:59)
[2020-09-22] MEDS: Pramipexole Di-HCl 0.25 MG TAB PO SCH ×3 (07:59→20:34)
[2020-09-22] MEDS: hydrALAZINE 25 MG TAB PO SCH ×2 (08:00→20:35)
[2020-09-22] MEDS: Amlodipine 5 MG TAB PO SCH (08:00)
[2020-09-22] MEDS: Aspirin 325 MG TAB PO SCH (08:00)
[2020-09-22] MEDS: Carbidopa/Levodopa 25-100 mg Tablet PO SCH ×4 (08:15→20:34)
[2020-09-22] MEDS: Atorvastatin Calcium 10 MG TAB PO SCH (20:35)
[2020-09-22] MEDS: Docusate 100 MG CAP PO SCH (20:35)
[2020-09-22] MEDS: Fish Oil 1,000 MG CAP PO SCH (20:35)
[2020-09-23] MEDS: hydrALAZINE 25 MG TAB PO SCH (08:42)
[2020-09-23] MEDS: Amlodipine 5 MG TAB PO SCH (08:43)
[2020-09-23] MEDS: Aspirin 325 MG TAB PO SCH (08:43)
[2020-09-23] MEDS: Carbidopa/Levodopa 25-100 mg Tablet PO SCH ×3 (08:44→17:46)
[2020-09-23] MEDS: Pramipexole Di-HCl 0.25 MG TAB PO SCH ×2 (08:45→15:30)
[2020-09-23] MEDS: Docusate 100 MG CAP PO SCH (08:45)
[2020-09-23] MEDS: Enoxaparin Sodium 40 MG/0.4 ML SYRINGE SC SCH (08:46)
[2020-09-23 20:15] VITALS: BP 155/68; TEMP 98.1
== END 2020-09-23 20:35 | DRG 309 ==
LOC: ERS 18:40 → 2SE 21:30 → OBSVTOIN 09-21 08:45
PROVIDERS: ADMIT Internal Medicine; ATTEND Internal Medicine
DX: R00.1 Bradycardia, unspecified (principal); I16.9 Hypertensive crisis, unspecified; F05 Delirium due to known physiological condition; G20 Parkinson's disease; E78.5 Hyperlipidemia, unspecified; E78.00 Pure hypercholesterolemia, unspecified; I10 Essential (primary) hypertension; Z90.49 Acquired absence of other specified parts of digestive tract; Z98.61 Coronary angioplasty status; Z90.710 Acquired absence of both cervix and uterus; Z86.73 Personal history of transient ischemic attack (TIA), and cerebral infarction without residual deficits; Z79.82 Long term (current) use of aspirin; Z79.899 Other long term (current) drug therapy; I25.10 Atherosclerotic heart disease of native coronary artery without angina pectoris; F02.80 Dementia in other diseases classified elsewhere, unspecified severity, without behavioral disturbance, psychotic disturbance, mood disturbance, and anxiety; Z20.822 Contact with and (suspected) exposure to COVID-19; E87.5 Hyperkalemia
CPT/HCPCS: 36415; 51701; 70496; 70498; 70551; 71045; 72170; 80053; 80061; 81003; 81015; 83036; 83605; 83690; 83735; 83880; 84443; 84484; 85007; 85025; 85027; 87040; 87086; 87635; 93005; 93306; 95712; 95816; 95819; 95957; 96365; 96372; 96375; G0378; J0360; J0696; J1650; J2270; J2405; J3480; J7050; Q9967; U0003; U0005